=== PATIENT | female | born 1935 | race Caucasian/White ===

== ENCOUNTER 2017-12-11 17:23 | Inpatient (IN) | payer OTHER ==
[2017-12-11 19:25] LABS: ADD MAN DIFF? NO
[2017-12-11 19:28] LABS: BASOPHILS % 0.3 % (0.0-2.0); EOSINOPHILS # 0.1 10^3/ul (0.0-0.5); EOSINOPHILS % 1.3 % (0.0-7.0); HEMATOCRIT 31.5 % (37.0-47.0); HEMOGLOBIN 11.3 g/dl (12.0-16.0); LYMPHOCYTES # 1.4 10^3/ul (0.8-2.9); LYMPHOCYTES % 20.1 % (15.0-51.0); MEAN CORPUSCULAR HEMOGLOBIN 30.9 pg (29.0-33.0); MEAN CORPUSCULAR HGB CONC 35.9 g/dl (32.0-37.0); MEAN CORPUSCULAR VOLUME 86.1 fl (82.0-101.0); MEAN PLATELET VOLUME 9.9 fl (7.4-10.4); MONOCYTE # 0.7 10^3/ul (0.3-0.9); NEUTROPHIL # 4.8 10^3/ul (1.6-7.5); NEUTROPHILS % 68.2 % (39.0-77.0); PLATELET COUNT 307 10^3/UL (140-415); RED BLOOD COUNT 3.66 10^6/ul (4.20-5.40); RED CELL DISTRIBUTION WIDTH 11.5 % (11.5-14.5)
[2017-12-11 19:47] LABS: ALANINE AMINOTRANSFERASE 47 IU/L (13-69); ALBUMIN 4.1 g/dl (3.3-4.9); ALBUMIN/GLOBULIN RATIO 1.32; ALKALINE PHOSPHATASE 86 IU/L (42-121); ANION GAP 12 (8-16); ASPARTATE AMINO TRANSFERASE 50 IU/L (15-46); BILIRUBIN,INDIRECT 0.5 mg/dl (0-1.1); BILIRUBIN,TOTAL 0.5 mg/dl (0.2-1.3); BLOOD UREA NITROGEN 10 mg/dl (7-20); CALCIUM 8.7 mg/dl (8.4-10.2); CARBON DIOXIDE 23 mmol/L (21-31); CHLORIDE 87 mmol/L (97-110); CREATININE 0.46 mg/dl (0.44-1.00); GLUCOSE 109 mg/dl (70-220); LIPASE 105 U/L (23-300); POTASSIUM 3.5 mmol/L (3.5-5.1); TOTAL PROTEIN 7.2 g/dl (6.1-8.1)
[2017-12-11 19:50] LABS: INR 0.93; PROTIME 12.5 Sec (11.9-14.9)
[2017-12-11 19:52] LABS: SODIUM 118 mmol/L (135-144)
[2017-12-11 19:58] LABS: PARTIAL THROMBOPLASTIN TIME 25.5 Sec (25.0-35.0)
[2017-12-11 20:02] LABS: B-TYPE NATRIURETIC PEPTIDE 163 PG/ML (0-450)
[2017-12-11 20:06] LABS: TROPONIN-I < 0.012 ng/ml (0.00-0.12)
[2017-12-11 20:51] LABS: ADD UMIC NO; UR ASCORBIC ACID NEGATIVE (NEGATIVE); UR BILIRUBIN (Dip) NEGATIVE (NEGATIVE); UR BLOOD (Dip) NEGATIVE (NEGATIVE); UR CLARITY CLEAR (CLEAR); UR COLOR STRAW (YELLOW); UR GLUCOSE (Dip) NEGATIVE (NEGATIVE); UR KETONES (Dip) TRACE mg/dL (NEGATIVE); UR LEUKOCYTE ESTERASE (Dip) NEGATIVE Leu/ul (NEGATIVE); UR NITRITE (Dip) NEGATIVE (NEGATIVE); UR SPECIFIC GRAVITY (Dip) 1.005 (1.003-1.030); UR TOTAL PROTEIN (Dip) NEGATIVE (NEGATIVE); UR UROBILINOGEN (Dip) NEGATIVE (NEGATIVE)
[2017-12-12 06:48] LABS: ADD MAN DIFF? NO
[2017-12-12 06:51] LABS: WHITE BLOOD COUNT 5.3 10^3/ul (4.8-10.8)
[2017-12-12 06:51] LABS: BASOPHILS % 0.4 % (0.0-2.0); EOSINOPHILS # 0.1 10^3/ul (0.0-0.5); EOSINOPHILS % 2.1 % (0.0-7.0); HEMATOCRIT 30.9 % (37.0-47.0); LYMPHOCYTES # 1.4 10^3/ul (0.8-2.9); LYMPHOCYTES % 25.6 % (15.0-51.0); MEAN CORPUSCULAR HEMOGLOBIN 30.7 pg (29.0-33.0); MEAN CORPUSCULAR HGB CONC 35.6 g/dl (32.0-37.0); MEAN CORPUSCULAR VOLUME 86.3 fl (82.0-101.0); MEAN PLATELET VOLUME 9.6 fl (7.4-10.4); MONOCYTE # 0.5 10^3/ul (0.3-0.9); MONOCYTES % 9.2 % (0.0-11.0); NEUTROPHIL # 3.3 10^3/ul (1.6-7.5); NEUTROPHILS % 62.5 % (39.0-77.0); PLATELET COUNT 286 10^3/UL (140-415); RED BLOOD COUNT 3.58 10^6/ul (4.20-5.40); RED CELL DISTRIBUTION WIDTH 11.4 % (11.5-14.5)
[2017-12-12] MEDS: SOD CHLORIDE 0.9% 1,000 ML IV ×4 (06:53→18:31)
[2017-12-12] MEDS ORDERED: ONDANSETRON 4 MG INJ IV (07:00)
[2017-12-12] MEDS ORDERED: ALBUTEROL/IPRATROPIUM (NEB) 3 ML AMP HHN (07:00)
[2017-12-12] MEDS ORDERED: ACETAMINOPHEN 325 MG TAB PO (07:00)
[2017-12-12] MEDS ORDERED: traMADol 50 MG TAB PO (07:00)
[2017-12-12] MEDS ORDERED: NACL 0.9% 3 ML SYG IV (07:00)
[2017-12-12] MEDS ORDERED: morphine 2 MG INJ IV (07:00)
[2017-12-12 07:06] LABS: ANION GAP 9 (8-16); BLOOD UREA NITROGEN 8 mg/dl (7-20); CALCIUM 8.6 mg/dl (8.4-10.2); CARBON DIOXIDE 26 mmol/L (21-31); CHLORIDE 91 mmol/L (97-110); CREATININE 0.44 mg/dl (0.44-1.00); GLUCOSE 105 mg/dl (70-220); MAGNESIUM 1.9 mg/dl (1.7-2.5); PHOSPHORUS 3.4 mg/dl (2.5-4.9); POTASSIUM 3.2 mmol/L (3.5-5.1); SODIUM 123 mmol/L (135-144)
[2017-12-12] MEDS: METOPROLOL (XL) 25 MG TAB PO (08:37)
[2017-12-12] MEDS: ASPIRIN (EC) 81 MG TAB PO (08:37)
[2017-12-12 08:54] LABS: OSMOLALITY 249 mOsm/kg (280-295)
[2017-12-12 10:25] LABS: POTASSIUM,URINE RANDOM 28.1 mmol/L (25-125)
[2017-12-12 10:25] LABS: SODIUM,URINE RANDOM 27 mmol/L (30-90)
[2017-12-12 10:33] LABS: OSMOLALITY,URINE 227 mOsm/kg (250-1200)
[2017-12-12] MEDS: POTASSIUM CHLORIDE (SR) 20 MEQ TAB PO (15:54)
[2017-12-12] MEDS: ATORVASTATIN 10 MG TAB PO (21:06)
[2017-12-12] MEDS: AMITRIPTYLINE 50 MG TAB PO (21:06)
[2017-12-13] MEDS: SOD CHLORIDE 0.9% 1,000 ML IV ×6 (03:00→23:00)
[2017-12-13 06:28] LABS: ADD MAN DIFF? NO; BASOPHILS % 0.5 % (0.0-2.0); EOSINOPHILS # 0.1 10^3/ul (0.0-0.5); EOSINOPHILS % 1.6 % (0.0-7.0); HEMATOCRIT 28.6 % (37.0-47.0); LYMPHOCYTES # 1.2 10^3/ul (0.8-2.9); LYMPHOCYTES % 20.3 % (15.0-51.0); MEAN CORPUSCULAR HEMOGLOBIN 31.3 pg (29.0-33.0); MEAN CORPUSCULAR VOLUME 89.7 fl (82.0-101.0); MEAN PLATELET VOLUME 9.6 fl (7.4-10.4); MONOCYTE # 0.7 10^3/ul (0.3-0.9); MONOCYTES % 11.6 % (0.0-11.0); NEUTROPHIL # 3.7 10^3/ul (1.6-7.5); NEUTROPHILS % 65.6 % (39.0-77.0); PLATELET COUNT 272 10^3/UL (140-415); RED BLOOD COUNT 3.19 10^6/ul (4.20-5.40)
[2017-12-13 06:28] LABS: WHITE BLOOD COUNT 5.7 10^3/ul (4.8-10.8)
[2017-12-13 06:55] LABS: POSITIVE DIFF @See below
[2017-12-13 07:19] LABS: ANION GAP 7 (8-16); BLOOD UREA NITROGEN 11 mg/dl (7-20); CARBON DIOXIDE 27 mmol/L (21-31); CHLORIDE 99 mmol/L (97-110); GLUCOSE 100 mg/dl (70-220); MAGNESIUM 1.9 mg/dl (1.7-2.5); PHOSPHORUS 2.4 mg/dl (2.5-4.9); POTASSIUM 3.8 mmol/L (3.5-5.1); SODIUM 129 mmol/L (135-144)
[2017-12-13] MEDS: ASPIRIN (EC) 81 MG TAB PO (08:30)
[2017-12-13] MEDS: METOPROLOL (XL) 25 MG TAB PO (08:31)
[2017-12-13] MEDS: AMITRIPTYLINE 50 MG TAB PO (22:10)
[2017-12-13] MEDS: ATORVASTATIN 10 MG TAB PO (22:10)
[2017-12-14 06:25] LABS: ADD MAN DIFF? NO
[2017-12-14 06:28] LABS: BASOPHILS % 0.4 % (0.0-2.0); EOSINOPHILS # 0.1 10^3/ul (0.0-0.5); EOSINOPHILS % 1.3 % (0.0-7.0); HEMATOCRIT 28.8 % (37.0-47.0); MEAN CORPUSCULAR HEMOGLOBIN 30.9 pg (29.0-33.0); MEAN CORPUSCULAR HGB CONC 34.7 g/dl (32.0-37.0); MEAN CORPUSCULAR VOLUME 88.9 fl (82.0-101.0); MEAN PLATELET VOLUME 9.3 fl (7.4-10.4); MONOCYTE # 0.7 10^3/ul (0.3-0.9); MONOCYTES % 10.4 % (0.0-11.0); NEUTROPHIL # 5.2 10^3/ul (1.6-7.5); NEUTROPHILS % 73.6 % (39.0-77.0); PLATELET COUNT 247 10^3/UL (140-415); RED BLOOD COUNT 3.24 10^6/ul (4.20-5.40)
[2017-12-14 06:57] LABS: ANION GAP 8 (8-16); BLOOD UREA NITROGEN 11 mg/dl (7-20); CALCIUM 8.1 mg/dl (8.4-10.2); CARBON DIOXIDE 28 mmol/L (21-31); CHLORIDE 100 mmol/L (97-110); CREATININE 0.45 mg/dl (0.44-1.00); GLUCOSE 105 mg/dl (70-220); POTASSIUM 3.5 mmol/L (3.5-5.1); SODIUM 132 mmol/L (135-144)
[2017-12-14] MEDS: SOD CHLORIDE 0.9% 1,000 ML IV ×4 (08:30→19:00)
[2017-12-14] MEDS: METOPROLOL (XL) 25 MG TAB PO (08:30)
[2017-12-14] MEDS: ASPIRIN (EC) 81 MG TAB PO (08:30)
[2017-12-14 13:41] LABS: CHOL/HDL RATIO 1.5 RATIO
[2017-12-14 13:49] LABS: HEMOGLOBIN A1C 5.9 % (0-5.9)
[2017-12-14 13:53] LABS: HDL CHOLESTEROL 69 mg/dl (33-92); LDL CHOLESTEROL,CALCULATED 31 mg/dl; TRIGLYCERIDES 33 mg/dl (0-149)
[2017-12-14 13:53] LABS: CHOLESTEROL 107 mg/dl (100-200)
[2017-12-14 14:18] LABS: B-TYPE NATRIURETIC PEPTIDE 255 PG/ML (0-450)
[2017-12-14] MEDS: AMOXICILLIN 500 MG CAP PO ×2 (14:48→21:53)
[2017-12-14] MEDS: hydrALAzine 20 MG INJ IV (15:53)
[2017-12-14] MEDS: ATORVASTATIN 10 MG TAB PO (20:42)
[2017-12-14] MEDS: AMITRIPTYLINE 50 MG TAB PO (20:43)
[2017-12-15] MEDS: SOD CHLORIDE 0.9% 1,000 ML IV ×2 (04:30→05:08)
[2017-12-15] MEDS: AMOXICILLIN 500 MG CAP PO ×3 (05:08→21:43)
[2017-12-15 06:21] LABS: ADD MAN DIFF? NO
[2017-12-15 06:42] LABS: BASOPHILS % 0.4 % (0.0-2.0); EOSINOPHILS # 0.1 10^3/ul (0.0-0.5); EOSINOPHILS % 1.5 % (0.0-7.0); HEMATOCRIT 29.7 % (37.0-47.0); HEMOGLOBIN 10.1 g/dl (12.0-16.0); LYMPHOCYTES # 1.3 10^3/ul (0.8-2.9); LYMPHOCYTES % 16.8 % (15.0-51.0); MEAN CORPUSCULAR HEMOGLOBIN 30.6 pg (29.0-33.0); MONOCYTE # 0.6 10^3/ul (0.3-0.9); MONOCYTES % 7.9 % (0.0-11.0); NEUTROPHIL # 5.5 10^3/ul (1.6-7.5); NEUTROPHILS % 73.1 % (39.0-77.0); PLATELET COUNT 281 10^3/UL (140-415); RED CELL DISTRIBUTION WIDTH 12.4 % (11.5-14.5)
[2017-12-15 06:42] LABS: WHITE BLOOD COUNT 7.5 10^3/ul (4.8-10.8)
[2017-12-15 06:57] LABS: ANION GAP 8 (8-16); BLOOD UREA NITROGEN 9 mg/dl (7-20); CALCIUM 8.3 mg/dl (8.4-10.2); CARBON DIOXIDE 27 mmol/L (21-31); CHLORIDE 101 mmol/L (97-110); CREATININE 0.43 mg/dl (0.44-1.00); GLUCOSE 123 mg/dl (70-220); POTASSIUM 3.3 mmol/L (3.5-5.1); SODIUM 133 mmol/L (135-144)
[2017-12-15 07:06] LABS: MAGNESIUM 1.7 mg/dl (1.7-2.5)
[2017-12-15 07:06] LABS: PHOSPHORUS 3.1 mg/dl (2.5-4.9)
[2017-12-15] MEDS: METOPROLOL (XL) 25 MG TAB PO (08:37)
[2017-12-15] MEDS: ASPIRIN (EC) 81 MG TAB PO (08:37)
[2017-12-15] MEDS: POTASSIUM CHLORIDE (SR) 10 MEQ TAB PO (11:39)
[2017-12-15] MEDS: MAGNESIUM SULFATE 2 GM/50 ML 50 ML IVPB (11:39)
[2017-12-15] MEDS: hydrALAzine 20 MG INJ IV (16:03)
[2017-12-15] MEDS ORDERED: morphine LIQ (10 MG/5 ML) CUP PO (16:30)
[2017-12-15] MEDS: AMITRIPTYLINE 50 MG TAB PO (21:00)
[2017-12-15] MEDS: ATORVASTATIN 10 MG TAB PO (21:43)
[2017-12-16] MEDS: hydrALAzine 20 MG INJ IV (04:17)
[2017-12-16] MEDS: LORAZEPAM 0.5 MG TAB PO (04:17)
[2017-12-16] MEDS: AMOXICILLIN 500 MG CAP PO ×2 (06:41→13:44)
[2017-12-16 07:59] LABS: ADD MAN DIFF? NO
[2017-12-16 08:03] LABS: WHITE BLOOD COUNT 7.5 10^3/ul (4.8-10.8)
[2017-12-16 08:03] LABS: BASOPHILS % 0.5 % (0.0-2.0); EOSINOPHILS # 0.1 10^3/ul (0.0-0.5); EOSINOPHILS % 0.8 % (0.0-7.0); HEMATOCRIT 30.6 % (37.0-47.0); HEMOGLOBIN 10.5 g/dl (12.0-16.0); LYMPHOCYTES # 1.7 10^3/ul (0.8-2.9); LYMPHOCYTES % 22.7 % (15.0-51.0); MEAN CORPUSCULAR HEMOGLOBIN 30.8 pg (29.0-33.0); MEAN CORPUSCULAR HGB CONC 34.3 g/dl (32.0-37.0); MEAN CORPUSCULAR VOLUME 89.7 fl (82.0-101.0); MEAN PLATELET VOLUME 9.5 fl (7.4-10.4); MONOCYTE # 0.6 10^3/ul (0.3-0.9); MONOCYTES % 8.3 % (0.0-11.0); NEUTROPHILS % 67.4 % (39.0-77.0); PLATELET COUNT 289 10^3/UL (140-415); RED BLOOD COUNT 3.41 10^6/ul (4.20-5.40); RED CELL DISTRIBUTION WIDTH 12.6 % (11.5-14.5)
[2017-12-16 08:30] LABS: PHOSPHORUS 3.2 mg/dl (2.5-4.9)
[2017-12-16 08:30] LABS: MAGNESIUM 2.1 mg/dl (1.7-2.5)
[2017-12-16 08:33] LABS: ANION GAP 13 (8-16); BLOOD UREA NITROGEN 10 mg/dl (7-20); CALCIUM 8.4 mg/dl (8.4-10.2); CARBON DIOXIDE 27 mmol/L (21-31); CHLORIDE 96 mmol/L (97-110); GLUCOSE 105 mg/dl (70-220); POTASSIUM 3.6 mmol/L (3.5-5.1); SODIUM 132 mmol/L (135-144)
[2017-12-16] MEDS: ASPIRIN (EC) 81 MG TAB PO (08:56)
[2017-12-16] MEDS: METOPROLOL (XL) 25 MG TAB PO (08:56)
== END 2017-12-16 19:20 | disposition home or self-care (01) | DRG 640 ==
LOC: TEL 22:40 → E/R 17:23 → TEL 21:29
DX: E87.1 Hypo-osmolality and hyponatremia (principal); G92 Toxic encephalopathy; N39.0 Urinary tract infection, site not specified; B95.5 Unspecified streptococcus as the cause of diseases classified elsewhere; I10 Essential (primary) hypertension; E78.5 Hyperlipidemia, unspecified; D64.9 Anemia, unspecified
CPT/HCPCS: 36415; 70551; 71045; 80048; 80053; 80061; 81003; 82436; 83036; 83690; 83735; 83880; 83930; 83935; 84100; 84133; 84300; 84484; 85025; 85610; 85730; 87086; 93005; 93970; 97161; 99285-25

== ENCOUNTER 2018-02-05 23:09 | Emergency (ER) | payer OTHER ==
[2018-02-06 00:35] LABS: URINE BLOOD (Dip) POC Negative (NEGATIVE); URINE GLUCOSE (Dip) POC Negative (NEGATIVE); URINE KETONES (Dip) POC Negative (NEGATIVE); URINE LEUKOCYTE EST (Dip) POC Negative (NEGATIVE); URINE NITRITE (Dip) POC Negative (NEGATIVE); URINE TOTAL PROTEIN POC Negative (NEGATIVE)
[2018-02-06 00:47] LABS: ADD MAN DIFF? NO
[2018-02-06 00:49] LABS: BASOPHILS % 0.4 % (0.0-2.0); EOSINOPHILS # 0.2 10^3/ul (0.0-0.5); EOSINOPHILS % 1.6 % (0.0-7.0); HEMATOCRIT 35.5 % (37.0-47.0); HEMOGLOBIN 11.9 g/dl (12.0-16.0); LYMPHOCYTES # 1.9 10^3/ul (0.8-2.9); LYMPHOCYTES % 20.1 % (15.0-51.0); MEAN CORPUSCULAR HGB CONC 33.5 g/dl (32.0-37.0); MEAN CORPUSCULAR VOLUME 92.4 fl (82.0-101.0); MEAN PLATELET VOLUME 11.2 fl (7.4-10.4); MONOCYTE # 0.9 10^3/ul (0.3-0.9); MONOCYTES % 9.7 % (0.0-11.0); NEUTROPHIL # 6.3 10^3/ul (1.6-7.5); PLATELET COUNT 210 10^3/UL (140-415); RED BLOOD COUNT 3.84 10^6/ul (4.20-5.40); RED CELL DISTRIBUTION WIDTH 12.7 % (11.5-14.5)
[2018-02-06 00:49] LABS: WHITE BLOOD COUNT 9.3 10^3/ul (4.8-10.8)
[2018-02-06] MEDS: BISACODYL 10 MG SUPP PR (01:03)
[2018-02-06 01:07] LABS: ALANINE AMINOTRANSFERASE 42 IU/L (13-69); ALBUMIN/GLOBULIN RATIO 1.33; ALKALINE PHOSPHATASE 116 IU/L (42-121); ANION GAP 15 (8-16); ASPARTATE AMINO TRANSFERASE 41 IU/L (15-46); BILIRUBIN,INDIRECT 0.3 mg/dl (0-1.1); BILIRUBIN,TOTAL 0.3 mg/dl (0.2-1.3); BLOOD UREA NITROGEN 11 mg/dl (7-20); CALCIUM 8.7 mg/dl (8.4-10.2); CARBON DIOXIDE 25 mmol/L (21-31); CHLORIDE 97 mmol/L (97-110); CREATININE 0.51 mg/dl (0.44-1.00); GLUCOSE 99 mg/dl (70-220); LIPASE 115 U/L (23-300); POTASSIUM 3.7 mmol/L (3.5-5.1); SODIUM 133 mmol/L (135-144)
== END 2018-02-06 03:42 | disposition home or self-care (01) ==
LOC: E/R 23:09
DX: K59.00 Constipation, unspecified (principal); I10 Essential (primary) hypertension; E66.9 Obesity, unspecified; Z68.28 Body mass index [BMI] 28.0-28.9, adult; Z79.82 Long term (current) use of aspirin
CPT/HCPCS: 36415; 76705; 80053; 81003; 83690; 85025; 99284-25

== ENCOUNTER 2019-03-10 16:34 | Emergency (ER) | payer OTHER ==
[2019-03-10] MEDS: KETOROLAC 30 MG INJ IM (18:01)
[2019-03-10 19:11] LABS: ADD UMIC YES; UR ASCORBIC ACID NEGATIVE (NEGATIVE); UR BACTERIA FEW /HPF (NONE SEEN); UR BILIRUBIN (Dip) NEGATIVE (NEGATIVE); UR BLOOD (Dip) 1+ mg/dL (NEGATIVE); UR CLARITY CLEAR (CLEAR); UR COLOR YELLOW (YELLOW); UR GLUCOSE (Dip) NEGATIVE (NEGATIVE); UR KETONES (Dip) NEGATIVE (NEGATIVE); UR LEUKOCYTE ESTERASE (Dip) TRACE Leu/ul (NEGATIVE); UR NITRITE (Dip) NEGATIVE (NEGATIVE); UR RBC 2 /HPF (0-5); UR SPECIFIC GRAVITY (Dip) 1.006 (1.003-1.030); UR TOTAL PROTEIN (Dip) NEGATIVE (NEGATIVE); UR UROBILINOGEN (Dip) NEGATIVE (NEGATIVE); UR WBC 1 /HPF (0-5)
[2019-03-10] MEDS: CEPHALEXIN 500 MG CAP PO (19:54)
== END 2019-03-10 20:00 | disposition home or self-care (01) ==
LOC: E/R 16:34
DX: S33.5XXA Sprain of ligaments of lumbar spine, initial encounter (principal); N39.0 Urinary tract infection, site not specified; I10 Essential (primary) hypertension; S89.91XA Unspecified injury of right lower leg, initial encounter; S89.92XA Unspecified injury of left lower leg, initial encounter; X58.XXXA Exposure to other specified factors, initial encounter; Y92.9 Unspecified place or not applicable
CPT/HCPCS: 81001; 96372; 99284-25

== ENCOUNTER 2019-03-18 16:46 | Inpatient (IN) | payer OTHER ==
[2019-03-18 17:32] LABS: ADD MAN DIFF? NO
[2019-03-18 17:36] LABS: BASOPHILS % 0.2 % (0.0-2.0); EOSINOPHILS # 0.1 10^3/ul (0.0-0.5); EOSINOPHILS % 0.6 % (0.0-7.0); HEMATOCRIT 31.9 % (37.0-47.0); HEMOGLOBIN 11.7 g/dl (12.0-16.0); LYMPHOCYTES # 1.5 10^3/ul (0.8-2.9); LYMPHOCYTES % 17.8 % (15.0-51.0); MEAN CORPUSCULAR HEMOGLOBIN 31.5 pg (29.0-33.0); MEAN CORPUSCULAR HGB CONC 36.7 g/dl (32.0-37.0); MEAN PLATELET VOLUME 9.7 fl (7.4-10.4); MONOCYTES % 11.4 % (0.0-11.0); NEUTROPHILS % 69.8 % (39.0-77.0); PLATELET COUNT 254 10^3/UL (140-415); RED BLOOD COUNT 3.71 10^6/ul (4.20-5.40)
[2019-03-18 17:36] LABS: WHITE BLOOD COUNT 8.6 10^3/ul (4.8-10.8)
[2019-03-18 17:52] LABS: ALANINE AMINOTRANSFERASE 62 IU/L (13-69); ALBUMIN 3.8 g/dl (3.3-4.9); ALBUMIN/GLOBULIN RATIO 1.26; ALKALINE PHOSPHATASE 101 IU/L (42-121); ANION GAP 11 (5-13); ASPARTATE AMINO TRANSFERASE 71 IU/L (15-46); BILIRUBIN,INDIRECT 0.6 mg/dl (0-1.1); BILIRUBIN,TOTAL 0.6 mg/dl (0.2-1.3); BLOOD UREA NITROGEN 18 mg/dl (7-20); CALCIUM 9.2 mg/dl (8.4-10.2); CARBON DIOXIDE 31 mmol/L (21-31); CHLORIDE 72 mmol/L (97-110); CREATININE 0.56 mg/dl (0.44-1.00); GLUCOSE 108 mg/dl (70-220); POTASSIUM 3.2 mmol/L (3.5-5.1); TOTAL PROTEIN 6.8 g/dl (6.1-8.1)
[2019-03-18 17:54] LABS: ACETAMINOPHEN < 10.0 ug/ml (10.0-30.0); ETHANOL < 10.0 mg/dl (0-0); SALICYLATE < 1.0 mg/dl (5.0-30.0)
[2019-03-18 17:57] LABS: SODIUM 114 mmol/L (135-144)
[2019-03-18 18:03] LABS: TROPONIN-I < 0.012 ng/ml (0.000-0.120)
[2019-03-18 18:47] LABS: ADD UMIC NO; UR ASCORBIC ACID NEGATIVE (NEGATIVE); UR BILIRUBIN (Dip) NEGATIVE (NEGATIVE); UR BLOOD (Dip) NEGATIVE (NEGATIVE); UR CLARITY CLEAR (CLEAR); UR COLOR STRAW (YELLOW); UR GLUCOSE (Dip) NEGATIVE (NEGATIVE); UR KETONES (Dip) NEGATIVE (NEGATIVE); UR LEUKOCYTE ESTERASE (Dip) NEGATIVE Leu/ul (NEGATIVE); UR NITRITE (Dip) NEGATIVE (NEGATIVE); UR SPECIFIC GRAVITY (Dip) 1.003 (1.003-1.030); UR TOTAL PROTEIN (Dip) NEGATIVE (NEGATIVE); UR UROBILINOGEN (Dip) NEGATIVE (NEGATIVE)
[2019-03-18] MEDS ORDERED: ONDANSETRON 4 MG INJ IV ×2 (19:00→20:30)
[2019-03-18] MEDS ORDERED: ACETAMINOPHEN 325 MG TAB PO (19:00)
[2019-03-18 19:03] LABS: CREATININE,URINE RANDOM 25.06 mg/dl (20-320)
[2019-03-18 19:04] LABS: SODIUM,URINE RANDOM < 13 mmol/L (30-90)
[2019-03-18 19:11] LABS: AMPHETAMINE/METHAMPHETAMINE Negative (NEGATIVE); BARBITURATES Negative (NEGATIVE); BENZODIAZEPINES Negative (NEGATIVE); CANNABINOIDS Negative (NEGATIVE); COCAINE Negative (NEGATIVE); OPIATES Negative (NEGATIVE)
[2019-03-18] MEDS ORDERED: NACL 0.9% 3 ML SYG IV (20:30)
[2019-03-18] MEDS: MIRTAZAPINE 15 MG TAB PO (21:00)
[2019-03-18] MEDS: NS + KCL 20 MEQ 1,000 ML IV (21:28)
[2019-03-18 21:29] LABS: OSMOLALITY,URINE 134 mOsm/kg (250-1200)
[2019-03-18 21:33] LABS: OSMOLALITY 236 mOsm/kg (280-295)
[2019-03-18 22:04] LABS: LACTIC ACID 1.2 mmol/L (0.5-2.0)
[2019-03-19 00:30] LABS: LACTIC ACID 1.3 mmol/L (0.5-2.0)
[2019-03-19] MEDS: morphine 2 MG INJ IV (01:30)
[2019-03-19 05:17] LABS: ADD MAN DIFF? NO
[2019-03-19 05:19] LABS: WHITE BLOOD COUNT 5.2 10^3/ul (4.8-10.8)
[2019-03-19 05:19] LABS: BASOPHILS % 0.2 % (0.0-2.0); EOSINOPHILS # 0.1 10^3/ul (0.0-0.5); HEMATOCRIT 34.8 % (37.0-47.0); HEMOGLOBIN 12.3 g/dl (12.0-16.0); LYMPHOCYTES # 1.2 10^3/ul (0.8-2.9); MEAN CORPUSCULAR HEMOGLOBIN 31.1 pg (29.0-33.0); MEAN CORPUSCULAR HGB CONC 35.3 g/dl (32.0-37.0); MEAN CORPUSCULAR VOLUME 88.1 fl (82.0-101.0); MONOCYTE # 0.6 10^3/ul (0.3-0.9); NEUTROPHIL # 3.2 10^3/ul (1.6-7.5); NEUTROPHILS % 62.2 % (39.0-77.0); PLATELET COUNT 276 10^3/UL (140-415); RED BLOOD COUNT 3.95 10^6/ul (4.20-5.40); RED CELL DISTRIBUTION WIDTH 11.2 % (11.5-14.5)
[2019-03-19 05:34] LABS: HEMOGLOBIN A1C 5.4 % (0-5.9)
[2019-03-19 05:54] LABS: ANION GAP 6 (5-13); BLOOD UREA NITROGEN 12 mg/dl (7-20); CALCIUM 8.9 mg/dl (8.4-10.2); CARBON DIOXIDE 34 mmol/L (21-31); CHLORIDE 88 mmol/L (97-110); CREATININE 0.47 mg/dl (0.44-1.00); GLUCOSE 109 mg/dl (70-220); MAGNESIUM 2.2 mg/dl (1.7-2.5); SODIUM 128 mmol/L (135-144)
[2019-03-19 06:00] LABS: POTASSIUM 2.9 mmol/L (3.5-5.1)
[2019-03-19] MEDS: POTASSIUM CHLORIDE 100 ML IVPB ×2 (06:36→09:08)
[2019-03-19] MEDS: ENOXAPARIN 40 MG/0.4 ML SYG SC (09:57)
[2019-03-19] MEDS ORDERED: POTASSIUM CHLORIDE 30 MEQ in SOD CHLORIDE 0.9% 1,000 ML IV (10:00)
[2019-03-19 11:40] LABS: ANION GAP 7 (5-13); BLOOD UREA NITROGEN 11 mg/dl (7-20); CALCIUM 8.6 mg/dl (8.4-10.2); CARBON DIOXIDE 31 mmol/L (21-31); CHLORIDE 91 mmol/L (97-110); CREATININE 0.46 mg/dl (0.44-1.00); GLUCOSE 124 mg/dl (70-220); POTASSIUM 3.4 mmol/L (3.5-5.1); SODIUM 129 mmol/L (135-144)
[2019-03-19] MEDS: DEXTROSE 5% 1,000 ML IV ×2 (11:43→20:10)
[2019-03-19 14:54] LABS: ANION GAP 8 (5-13); BLOOD UREA NITROGEN 11 mg/dl (7-20); CALCIUM 8.5 mg/dl (8.4-10.2); CARBON DIOXIDE 27 mmol/L (21-31); CHLORIDE 92 mmol/L (97-110); CREATININE 0.46 mg/dl (0.44-1.00); GLUCOSE 141 mg/dl (70-220); SODIUM 127 mmol/L (135-144)
[2019-03-19] MEDS: MIRTAZAPINE 15 MG TAB PO (20:11)
[2019-03-19] MEDS: HYDROCODONE/APAP (5/325) TAB PO (20:21)
[2019-03-20 07:04] LABS: ANION GAP 7 (5-13); BLOOD UREA NITROGEN 8 mg/dl (7-20); CALCIUM 8.3 mg/dl (8.4-10.2); CARBON DIOXIDE 30 mmol/L (21-31); CHLORIDE 87 mmol/L (97-110); CREATININE 0.53 mg/dl (0.44-1.00); GLUCOSE 121 mg/dl (70-220); PHOSPHORUS 3.2 mg/dl (2.5-4.9); POTASSIUM 3.1 mmol/L (3.5-5.1); SODIUM 124 mmol/L (135-144)
[2019-03-20] MEDS: ENOXAPARIN 40 MG/0.4 ML SYG SC (08:36)
[2019-03-20] MEDS: DEXTROSE 5% 1,000 ML IV (08:41)
[2019-03-20] MEDS: POTASSIUM CHLORIDE 20 MEQ POWDER FOR ORAL SOLN PO (10:13)
[2019-03-20 16:15] LABS: ANION GAP 8 (5-13); BLOOD UREA NITROGEN 12 mg/dl (7-20); CALCIUM 8.8 mg/dl (8.4-10.2); CARBON DIOXIDE 26 mmol/L (21-31); CHLORIDE 91 mmol/L (97-110); CREATININE 0.67 mg/dl (0.44-1.00); GLUCOSE 147 mg/dl (70-220); SODIUM 125 mmol/L (135-144)
[2019-03-20] MEDS: HYDROCODONE/APAP (5/325) TAB PO (21:13)
[2019-03-20] MEDS: MIRTAZAPINE 15 MG TAB PO (21:13)
[2019-03-20] MEDS: HALOPERIDOL 5 MG INJ IM (23:15)
[2019-03-21] MEDS: ENOXAPARIN 40 MG/0.4 ML SYG SC (08:32)
[2019-03-21 08:47] LABS: ADD MAN DIFF? NO
[2019-03-21 08:53] LABS: BASOPHILS % 0.4 % (0.0-2.0); EOSINOPHILS % 0.1 % (0.0-7.0); HEMATOCRIT 36.2 % (37.0-47.0); HEMOGLOBIN 12.1 g/dl (12.0-16.0); LYMPHOCYTES # 0.6 10^3/ul (0.8-2.9); LYMPHOCYTES % 6.6 % (15.0-51.0); MEAN CORPUSCULAR HEMOGLOBIN 31.2 pg (29.0-33.0); MEAN CORPUSCULAR HGB CONC 33.4 g/dl (32.0-37.0); MEAN CORPUSCULAR VOLUME 93.3 fl (82.0-101.0); MEAN PLATELET VOLUME 9.6 fl (7.4-10.4); MONOCYTE # 0.6 10^3/ul (0.3-0.9); MONOCYTES % 6.3 % (0.0-11.0); NEUTROPHIL # 7.9 10^3/ul (1.6-7.5); NEUTROPHILS % 86.3 % (39.0-77.0); PLATELET COUNT 267 10^3/UL (140-415); RED BLOOD COUNT 3.88 10^6/ul (4.20-5.40); RED CELL DISTRIBUTION WIDTH 12.4 % (11.5-14.5)
[2019-03-21 08:53] LABS: WHITE BLOOD COUNT 9.1 10^3/ul (4.8-10.8)
[2019-03-21 09:28] LABS: ANION GAP 12 (5-13); BLOOD UREA NITROGEN 11 mg/dl (7-20); CALCIUM 9.1 mg/dl (8.4-10.2); CARBON DIOXIDE 25 mmol/L (21-31); CHLORIDE 95 mmol/L (97-110); GLUCOSE 143 mg/dl (70-220); POTASSIUM 3.3 mmol/L (3.5-5.1); SODIUM 132 mmol/L (135-144)
[2019-03-21] MEDS: METOPROLOL (XL) 25 MG TAB PO (18:09)
[2019-03-21] MEDS: HALOPERIDOL 5 MG INJ IM (21:33)
[2019-03-21] MEDS: MIRTAZAPINE 15 MG TAB PO (21:33)
[2019-03-22] MEDS ORDERED: LORAZEPAM 2 MG INJ (02:20)
[2019-03-22] MEDS: LORAZEPAM 2 MG INJ IV (02:30)
[2019-03-22] MEDS: HALOPERIDOL 5 MG INJ IM (04:30)
[2019-03-22 06:04] LABS: ADD MAN DIFF? NO
[2019-03-22 06:13] LABS: BASOPHILS % 0.4 % (0.0-2.0); EOSINOPHILS # 0.1 10^3/ul (0.0-0.5); EOSINOPHILS % 1.1 % (0.0-7.0); LYMPHOCYTES # 1.8 10^3/ul (0.8-2.9); LYMPHOCYTES % 23.9 % (15.0-51.0); MEAN CORPUSCULAR HEMOGLOBIN 31.4 pg (29.0-33.0); MEAN CORPUSCULAR HGB CONC 33.3 g/dl (32.0-37.0); MEAN CORPUSCULAR VOLUME 94.2 fl (82.0-101.0); MEAN PLATELET VOLUME 9.5 fl (7.4-10.4); MONOCYTE # 0.6 10^3/ul (0.3-0.9); MONOCYTES % 8.4 % (0.0-11.0); NEUTROPHILS % 65.8 % (39.0-77.0); PLATELET COUNT 315 10^3/UL (140-415); RED BLOOD COUNT 4.14 10^6/ul (4.20-5.40); RED CELL DISTRIBUTION WIDTH 12.2 % (11.5-14.5)
[2019-03-22 06:13] LABS: WHITE BLOOD COUNT 7.5 10^3/ul (4.8-10.8)
[2019-03-22 06:26] LABS: INR 0.96; PROTIME 12.9 Sec (11.9-14.9)
[2019-03-22 06:51] LABS: ANION GAP 8 (5-13); BLOOD UREA NITROGEN 11 mg/dl (7-20); CALCIUM 9.3 mg/dl (8.4-10.2); CARBON DIOXIDE 31 mmol/L (21-31); CHLORIDE 96 mmol/L (97-110); CREATININE 0.62 mg/dl (0.44-1.00); GLUCOSE 105 mg/dl (70-220); MAGNESIUM 2.2 mg/dl (1.7-2.5); PHOSPHORUS 4.2 mg/dl (2.5-4.9); POTASSIUM 3.5 mmol/L (3.5-5.1); SODIUM 135 mmol/L (135-144)
[2019-03-22 06:57] LABS: FREE T4 (FREE THYROXINE) 1.55 ng/dl (0.85-1.93)
[2019-03-22 07:10] LABS: TRIIODOTHYRONINE 1.24 ng/ml (0.97-1.69)
[2019-03-22] MEDS: METOPROLOL (XL) 25 MG TAB PO (08:24)
[2019-03-22] MEDS: ENOXAPARIN 40 MG/0.4 ML SYG SC (08:46)
[2019-03-22 09:19] LABS: FOLATE > 20.0 ng/ml (2.8-20.0)
[2019-03-22] MEDS: HYDROCODONE/APAP (5/325) TAB PO (10:44)
[2019-03-22] MEDS: LEVOTHYROXINE 50 MCG TAB PO (14:47)
[2019-03-22 15:02] LABS: RAPID PLASMA REAGIN NONREACTIVE (NR)
[2019-03-22] MEDS: MIRTAZAPINE 15 MG TAB PO (20:19)
[2019-03-23 06:15] LABS: SODIUM 134 mmol/L (135-144)
[2019-03-23] MEDS: LEVOTHYROXINE 50 MCG TAB PO (06:35)
[2019-03-23] MEDS: ASPIRIN (EC) 81 MG TAB PO (08:21)
[2019-03-23] MEDS: GABAPENTIN 300 MG CAP PO (08:21)
[2019-03-23] MEDS: METOPROLOL (XL) 25 MG TAB PO (08:22)
[2019-03-23] MEDS: ENOXAPARIN 40 MG/0.4 ML SYG SC (08:25)
[2019-03-23] MEDS: MIRTAZAPINE 15 MG TAB PO (20:34)
[2019-03-24] MEDS: LEVOTHYROXINE 50 MCG TAB PO (05:46)
[2019-03-24 06:00] LABS: SODIUM 134 mmol/L (135-144)
[2019-03-24] MEDS: GABAPENTIN 300 MG CAP PO (09:02)
[2019-03-24] MEDS: ASPIRIN (EC) 81 MG TAB PO (09:02)
[2019-03-24] MEDS: METOPROLOL (XL) 25 MG TAB PO (09:03)
[2019-03-24] MEDS: ENOXAPARIN 40 MG/0.4 ML SYG SC (09:07)
[2019-03-24] MEDS: HYDROCODONE/APAP (5/325) TAB PO (18:20)
[2019-03-24] MEDS: MIRTAZAPINE 15 MG TAB PO (20:25)
[2019-03-24] MEDS: ZOLPIDEM 5 MG TAB PO (21:03)
[2019-03-25] MEDS: LEVOTHYROXINE 50 MCG TAB PO (05:28)
[2019-03-25 06:11] LABS: SODIUM 129 mmol/L (135-144)
[2019-03-25] MEDS: ENOXAPARIN 40 MG/0.4 ML SYG SC (08:27)
[2019-03-25] MEDS: GABAPENTIN 300 MG CAP PO ×2 (08:27→20:21)
[2019-03-25] MEDS: ASPIRIN (EC) 81 MG TAB PO (08:27)
[2019-03-25] MEDS: SODIUM CHLORIDE 1 GM TAB PO ×3 (08:27→20:21)
[2019-03-25] MEDS: METOPROLOL (XL) 25 MG TAB PO (08:28)
[2019-03-25] MEDS: DOCUSATE SODIUM 100 MG CAP PO (08:33)
[2019-03-25] MEDS: MIRTAZAPINE 15 MG TAB PO (20:21)
[2019-03-25] MEDS: morphine 2 MG INJ IV (20:22)
[2019-03-25] MEDS: DICLOFENAC SODIUM 1% GEL 100 GM TUBE TP (20:23)
[2019-03-26] MEDS: GABAPENTIN 100 MG CAP PO ×2 (05:12→17:17)
[2019-03-26] MEDS: LEVOTHYROXINE 50 MCG TAB PO (05:12)
[2019-03-26 06:00] LABS: ADD MAN DIFF? NO
[2019-03-26 06:06] LABS: WHITE BLOOD COUNT 6.1 10^3/ul (4.8-10.8)
[2019-03-26 06:06] LABS: BASOPHILS % 0.5 % (0.0-2.0); EOSINOPHILS # 0.2 10^3/ul (0.0-0.5); EOSINOPHILS % 2.6 % (0.0-7.0); HEMATOCRIT 33.1 % (37.0-47.0); HEMOGLOBIN 11.1 g/dl (12.0-16.0); LYMPHOCYTES # 1.7 10^3/ul (0.8-2.9); MEAN CORPUSCULAR HEMOGLOBIN 31.4 pg (29.0-33.0); MEAN CORPUSCULAR HGB CONC 33.5 g/dl (32.0-37.0); MEAN CORPUSCULAR VOLUME 93.8 fl (82.0-101.0); MEAN PLATELET VOLUME 9.8 fl (7.4-10.4); MONOCYTE # 0.4 10^3/ul (0.3-0.9); NEUTROPHIL # 3.8 10^3/ul (1.6-7.5); NEUTROPHILS % 61.6 % (39.0-77.0); PLATELET COUNT 313 10^3/UL (140-415); RED BLOOD COUNT 3.53 10^6/ul (4.20-5.40); RED CELL DISTRIBUTION WIDTH 12.5 % (11.5-14.5)
[2019-03-26 07:11] LABS: ANION GAP 3 (5-13); BLOOD UREA NITROGEN 20 mg/dl (7-20); CALCIUM 8.9 mg/dl (8.4-10.2); CARBON DIOXIDE 32 mmol/L (21-31); CHLORIDE 100 mmol/L (97-110); CREATININE 0.53 mg/dl (0.44-1.00); GLUCOSE 95 mg/dl (70-220); PHOSPHORUS 3.2 mg/dl (2.5-4.9); POTASSIUM 3.9 mmol/L (3.5-5.1); SODIUM 135 mmol/L (135-144)
[2019-03-26] MEDS: ASPIRIN (EC) 81 MG TAB PO (08:11)
[2019-03-26] MEDS: SODIUM CHLORIDE 1 GM TAB PO ×3 (08:11→20:16)
[2019-03-26] MEDS: DICLOFENAC SODIUM 1% GEL 100 GM TUBE TP ×2 (08:12→20:17)
[2019-03-26] MEDS: ENOXAPARIN 40 MG/0.4 ML SYG SC (08:12)
[2019-03-26] MEDS: METOPROLOL (XL) 25 MG TAB PO (08:17)
[2019-03-26] MEDS: MIRTAZAPINE 15 MG TAB PO (20:16)
[2019-03-26] MEDS: GABAPENTIN 300 MG CAP PO (20:17)
[2019-03-27] MEDS: NITROGLYCERIN (SL) 0.4 MG TAB SL (04:30)
[2019-03-27] MEDS: LEVOTHYROXINE 50 MCG TAB PO (05:17)
[2019-03-27] MEDS: GABAPENTIN 100 MG CAP PO ×2 (05:17→17:08)
[2019-03-27 06:40] LABS: TROPONIN-I < 0.012 ng/ml (0.000-0.120)
[2019-03-27 06:40] LABS: CK-MB 1.96 ng/ml (0.0-2.4)
[2019-03-27] MEDS: SODIUM CHLORIDE 1 GM TAB PO ×3 (08:54→20:30)
[2019-03-27] MEDS: ASPIRIN (EC) 81 MG TAB PO (08:54)
[2019-03-27] MEDS: DICLOFENAC SODIUM 1% GEL 100 GM TUBE TP ×2 (08:54→20:31)
[2019-03-27] MEDS: METOPROLOL (XL) 25 MG TAB PO (08:54)
[2019-03-27] MEDS: ENOXAPARIN 40 MG/0.4 ML SYG SC (09:10)
[2019-03-27 11:04] LABS: CK-MB 2.24 ng/ml (0.0-2.4)
[2019-03-27 11:04] LABS: TROPONIN-I < 0.012 ng/ml (0.000-0.120)
[2019-03-27] MEDS: HYDROCODONE/APAP (5/325) TAB PO (17:08)
[2019-03-27] MEDS: MIRTAZAPINE 15 MG TAB PO (20:31)
[2019-03-27] MEDS: FAMOTIDINE 20 MG TAB PO (20:31)
[2019-03-27] MEDS: GABAPENTIN 300 MG CAP PO (20:31)
[2019-03-28] MEDS: LORAZEPAM 2 MG INJ IV (03:11)
[2019-03-28 05:24] LABS: ADD MAN DIFF? NO
[2019-03-28] MEDS: LEVOTHYROXINE 50 MCG TAB PO (05:32)
[2019-03-28] MEDS: GABAPENTIN 100 MG CAP PO ×2 (05:32→17:26)
[2019-03-28 06:02] LABS: WHITE BLOOD COUNT 5.1 10^3/ul (4.8-10.8)
[2019-03-28 06:02] LABS: BASOPHILS % 0.8 % (0.0-2.0); EOSINOPHILS # 0.2 10^3/ul (0.0-0.5); EOSINOPHILS % 3.6 % (0.0-7.0); HEMATOCRIT 34.4 % (37.0-47.0); HEMOGLOBIN 11.1 g/dl (12.0-16.0); LYMPHOCYTES # 1.5 10^3/ul (0.8-2.9); LYMPHOCYTES % 28.9 % (15.0-51.0); MEAN CORPUSCULAR HEMOGLOBIN 30.9 pg (29.0-33.0); MEAN CORPUSCULAR HGB CONC 32.3 g/dl (32.0-37.0); MEAN CORPUSCULAR VOLUME 95.8 fl (82.0-101.0); MEAN PLATELET VOLUME 9.9 fl (7.4-10.4); MONOCYTE # 0.4 10^3/ul (0.3-0.9); MONOCYTES % 8.1 % (0.0-11.0); NEUTROPHILS % 58.4 % (39.0-77.0); PLATELET COUNT 303 10^3/UL (140-415); RED BLOOD COUNT 3.59 10^6/ul (4.20-5.40); RED CELL DISTRIBUTION WIDTH 12.5 % (11.5-14.5)
[2019-03-28 06:09] LABS: LIPASE 44 U/L (23-300)
[2019-03-28 06:24] LABS: ANION GAP 6 (5-13)
[2019-03-28 06:48] LABS: ALANINE AMINOTRANSFERASE 40 IU/L (13-69); ALBUMIN 3.5 g/dl (3.3-4.9); ALBUMIN/GLOBULIN RATIO 1.16; ALKALINE PHOSPHATASE 86 IU/L (42-121); ASPARTATE AMINO TRANSFERASE 37 IU/L (15-46); BILIRUBIN,INDIRECT 0.2 mg/dl (0-1.1); BILIRUBIN,TOTAL 0.2 mg/dl (0.2-1.3); BLOOD UREA NITROGEN 13 mg/dl (7-20); CARBON DIOXIDE 29 mmol/L (21-31); CHLORIDE 102 mmol/L (97-110); CREATININE 0.51 mg/dl (0.44-1.00); GLUCOSE 93 mg/dl (70-220); POTASSIUM 3.5 mmol/L (3.5-5.1); SODIUM 137 mmol/L (135-144); TOTAL PROTEIN 6.5 g/dl (6.1-8.1)
[2019-03-28] MEDS: ASPIRIN (EC) 81 MG TAB PO (08:41)
[2019-03-28] MEDS: SODIUM CHLORIDE 1 GM TAB PO ×3 (08:41→20:58)
[2019-03-28] MEDS: METOPROLOL (XL) 25 MG TAB PO (08:41)
[2019-03-28] MEDS: DICLOFENAC SODIUM 1% GEL 100 GM TUBE TP ×2 (08:42→20:58)
[2019-03-28] MEDS: ENOXAPARIN 40 MG/0.4 ML SYG SC (08:42)
[2019-03-28] MEDS: DOCUSATE SODIUM 100 MG CAP PO (17:26)
[2019-03-28] MEDS: GABAPENTIN 300 MG CAP PO (20:58)
[2019-03-28] MEDS: FAMOTIDINE 20 MG TAB PO (20:58)
[2019-03-28] MEDS: MIRTAZAPINE 15 MG TAB PO (20:58)
[2019-03-28] MEDS: hydrALAzine 20 MG INJ IV (22:28)
[2019-03-29] MEDS: hydrALAzine 20 MG INJ IV (01:25)
[2019-03-29] MEDS: GABAPENTIN 100 MG CAP PO ×2 (05:46→17:20)
[2019-03-29] MEDS: LEVOTHYROXINE 50 MCG TAB PO (05:46)
[2019-03-29] MEDS: SODIUM CHLORIDE 1 GM TAB PO ×4 (08:43→20:45)
[2019-03-29] MEDS: DICLOFENAC SODIUM 1% GEL 100 GM TUBE TP ×2 (08:44→20:46)
[2019-03-29] MEDS: METOPROLOL (XL) 25 MG TAB PO (08:44)
[2019-03-29] MEDS: ENOXAPARIN 40 MG/0.4 ML SYG SC (08:46)
[2019-03-29] MEDS: ASPIRIN (EC) 81 MG TAB PO (09:20)
[2019-03-29] MEDS: DOCUSATE SODIUM 100 MG CAP PO (17:20)
[2019-03-29] MEDS: MIRTAZAPINE 15 MG TAB PO (20:45)
[2019-03-29] MEDS: FAMOTIDINE 20 MG TAB PO (20:45)
[2019-03-29] MEDS: GABAPENTIN 300 MG CAP PO (20:45)
[2019-03-29] MEDS: ACETAMINOPHEN 325 MG TAB PO (20:46)
[2019-03-30] MEDS: GABAPENTIN 100 MG CAP PO ×2 (05:32→17:26)
[2019-03-30] MEDS: LEVOTHYROXINE 50 MCG TAB PO (05:32)
[2019-03-30 05:41] LABS: ADD MAN DIFF? NO
[2019-03-30 05:50] LABS: WHITE BLOOD COUNT 5.3 10^3/ul (4.8-10.8)
[2019-03-30 05:50] LABS: BASOPHILS % 0.6 % (0.0-2.0); EOSINOPHILS # 0.1 10^3/ul (0.0-0.5); EOSINOPHILS % 2.3 % (0.0-7.0); HEMOGLOBIN 11.2 g/dl (12.0-16.0); LYMPHOCYTES # 1.5 10^3/ul (0.8-2.9); LYMPHOCYTES % 27.4 % (15.0-51.0); MEAN CORPUSCULAR HEMOGLOBIN 31.2 pg (29.0-33.0); MEAN CORPUSCULAR HGB CONC 32.9 g/dl (32.0-37.0); MEAN CORPUSCULAR VOLUME 94.7 fl (82.0-101.0); MEAN PLATELET VOLUME 10.2 fl (7.4-10.4); MONOCYTE # 0.6 10^3/ul (0.3-0.9); MONOCYTES % 11.6 % (0.0-11.0); NEUTROPHIL # 3.1 10^3/ul (1.6-7.5); NEUTROPHILS % 57.9 % (39.0-77.0); PLATELET COUNT 310 10^3/UL (140-415); RED BLOOD COUNT 3.59 10^6/ul (4.20-5.40); RED CELL DISTRIBUTION WIDTH 12.4 % (11.5-14.5)
[2019-03-30 06:06] LABS: ANION GAP 5 (5-13); BLOOD UREA NITROGEN 19 mg/dl (7-20); CARBON DIOXIDE 27 mmol/L (21-31); CHLORIDE 104 mmol/L (97-110); CREATININE 0.57 mg/dl (0.44-1.00); GLUCOSE 100 mg/dl (70-220); POTASSIUM 3.4 mmol/L (3.5-5.1); SODIUM 136 mmol/L (135-144)
[2019-03-30] MEDS: SODIUM CHLORIDE 1 GM TAB PO ×3 (08:07→20:40)
[2019-03-30] MEDS: METOPROLOL (XL) 25 MG TAB PO (08:07)
[2019-03-30] MEDS: ENOXAPARIN 40 MG/0.4 ML SYG SC (08:07)
[2019-03-30] MEDS: POTASSIUM CHLORIDE (SR) 20 MEQ TAB PO ×2 (08:07→14:17)
[2019-03-30] MEDS: ASPIRIN (EC) 81 MG TAB PO (08:07)
[2019-03-30] MEDS: DICLOFENAC SODIUM 1% GEL 100 GM TUBE TP ×2 (08:08→20:41)
[2019-03-30] MEDS: DOCUSATE SODIUM 100 MG CAP PO (08:13)
[2019-03-30] MEDS: AMLODIPINE 5 MG TAB PO (14:20)
[2019-03-30] MEDS: GABAPENTIN 300 MG CAP PO (20:40)
[2019-03-30] MEDS: FAMOTIDINE 20 MG TAB PO (20:40)
[2019-03-30] MEDS: MIRTAZAPINE 15 MG TAB PO (20:40)
[2019-03-31] MEDS: LEVOTHYROXINE 50 MCG TAB PO (05:19)
[2019-03-31] MEDS: GABAPENTIN 100 MG CAP PO ×2 (05:19→16:51)
[2019-03-31 06:13] LABS: ANION GAP 6 (5-13); BLOOD UREA NITROGEN 12 mg/dl (7-20); CALCIUM 9.2 mg/dl (8.4-10.2); CARBON DIOXIDE 25 mmol/L (21-31); CHLORIDE 105 mmol/L (97-110); CREATININE 0.46 mg/dl (0.44-1.00); GLUCOSE 100 mg/dl (70-220); POTASSIUM 4.2 mmol/L (3.5-5.1); SODIUM 136 mmol/L (135-144)
[2019-03-31] MEDS: ENOXAPARIN 40 MG/0.4 ML SYG SC (08:11)
[2019-03-31] MEDS: ASPIRIN (EC) 81 MG TAB PO (08:12)
[2019-03-31] MEDS: SODIUM CHLORIDE 1 GM TAB PO ×2 (08:12→12:11)
[2019-03-31] MEDS: AMLODIPINE 5 MG TAB PO (08:13)
[2019-03-31] MEDS: DICLOFENAC SODIUM 1% GEL 100 GM TUBE TP (08:13)
[2019-03-31] MEDS: METOPROLOL (XL) 25 MG TAB PO (08:13)
[2019-03-31] MEDS: morphine 2 MG INJ IV (12:12)
== END 2019-03-31 20:05 | disposition home health service (06) | DRG 640 ==
LOC: 6WM 03-22 20:30 → MS3 03-22 21:52 → E/R 16:46 → 6WM 03-19 14:41 → ICU 18:45
PROVIDERS: Internal Medicine
DX: E87.1 Hypo-osmolality and hyponatremia (principal); G93.41 Metabolic encephalopathy; E86.0 Dehydration; D64.9 Anemia, unspecified; F03.90 Unspecified dementia, unspecified severity, without behavioral disturbance, psychotic disturbance, mood disturbance, and anxiety; E87.6 Hypokalemia; I10 Essential (primary) hypertension; E03.9 Hypothyroidism, unspecified; F32.9 Major depressive disorder, single episode, unspecified; F41.9 Anxiety disorder, unspecified; E78.5 Hyperlipidemia, unspecified; M81.0 Age-related osteoporosis without current pathological fracture; T50.2X5A Adverse effect of carbonic-anhydrase inhibitors, benzothiadiazides and other diuretics, initial encounter; Y92.230 Patient room in hospital as the place of occurrence of the external cause; M25.562 Pain in left knee; M25.561 Pain in right knee; R07.89 Other chest pain; R62.7 Adult failure to thrive; Z68.25 Body mass index [BMI] 25.0-25.9, adult; Z79.82 Long term (current) use of aspirin
CPT/HCPCS: 36415; 70450; 71045; 73560; 80048; 80053; 80307; 81003; 82553; 82607; 82746; 82962; 83036; 83605; 83690; 83735; 83930; 83935; 84100; 84155; 84295; 84300; 84439; 84443; 84480; 84484; 85025; 85610; 86592; 87081; 92526; 92610; 93005; 97110; 97116; 97162; 97167; 97530; 97535; 99285-25

== ENCOUNTER 2019-04-20 21:44 | Emergency (ER) | payer OTHER ==
[2019-04-21 00:46] LABS: URINE BLOOD (Dip) POC Trace-lysed (NEGATIVE); URINE GLUCOSE (Dip) POC Negative (NEGATIVE); URINE KETONES (Dip) POC Negative (NEGATIVE); URINE LEUKOCYTE EST (Dip) POC Trace (NEGATIVE); URINE NITRITE (Dip) POC Negative (NEGATIVE); URINE TOTAL PROTEIN POC Negative (NEGATIVE)
[2019-04-21 00:52] LABS: ADD MAN DIFF? NO
[2019-04-21 00:53] LABS: WHITE BLOOD COUNT 7.4 10^3/ul (4.8-10.8)
[2019-04-21 00:53] LABS: BASOPHILS % 0.1 % (0.0-2.0); EOSINOPHILS # 0.1 10^3/ul (0.0-0.5); EOSINOPHILS % 1.5 % (0.0-7.0); HEMATOCRIT 34.2 % (37.0-47.0); HEMOGLOBIN 11.8 g/dl (12.0-16.0); LYMPHOCYTES # 1.9 10^3/ul (0.8-2.9); LYMPHOCYTES % 25.2 % (15.0-51.0); MEAN CORPUSCULAR HEMOGLOBIN 31.2 pg (29.0-33.0); MEAN CORPUSCULAR HGB CONC 34.5 g/dl (32.0-37.0); MEAN CORPUSCULAR VOLUME 90.5 fl (82.0-101.0); MONOCYTE # 0.7 10^3/ul (0.3-0.9); MONOCYTES % 9.7 % (0.0-11.0); NEUTROPHIL # 4.7 10^3/ul (1.6-7.5); NEUTROPHILS % 63.2 % (39.0-77.0); PLATELET COUNT 203 10^3/UL (140-415); RED BLOOD COUNT 3.78 10^6/ul (4.20-5.40); RED CELL DISTRIBUTION WIDTH 11.9 % (11.5-14.5)
[2019-04-21 01:07] LABS: ANION GAP 9 (5-13); BLOOD UREA NITROGEN 9 mg/dl (7-20); CALCIUM 8.6 mg/dl (8.4-10.2); CARBON DIOXIDE 24 mmol/L (21-31); CHLORIDE 94 mmol/L (97-110); CREATININE 0.48 mg/dl (0.44-1.00); GLUCOSE 106 mg/dl (70-220); MAGNESIUM 2.1 mg/dl (1.7-2.5); POTASSIUM 3.3 mmol/L (3.5-5.1); SODIUM 127 mmol/L (135-144)
[2019-04-21] MEDS: POTASSIUM CHLORIDE (SR) 20 MEQ TAB PO (03:03)
== END 2019-04-21 03:32 | disposition home or self-care (01) ==
LOC: E/R 21:44
DX: D64.9 Anemia, unspecified (principal); E87.6 Hypokalemia; E87.1 Hypo-osmolality and hyponatremia; K08.89 Other specified disorders of teeth and supporting structures; I10 Essential (primary) hypertension; E03.9 Hypothyroidism, unspecified; Z79.82 Long term (current) use of aspirin
CPT/HCPCS: 80048; 81003; 83735; 85025; 93005; 99284-25